=== PATIENT | female | born 1950 | race Caucasian/White ===

== ENCOUNTER 2023-12-15 09:13 | Inpatient (IN) | payer MEDICARE, MEDICAID ==
[~2023-12-15] VITALS: Ht 154.9 cm; Wt 84.8 kg
[~2023-12-15 09:13] MED LIST: FLUO40CA10 PO; FLUT16SP2 BOTHNARES; LEVO200T8 PO; LOVA20TA2 PO
[2023-12-15 10:33] LABS: BASOPHILS % (AUTO) 0.4 % (0-1); EOSINOPHILS # (AUTO) 0.1 X10'3 (0-0.9); EOSINOPHILS % (AUTO) 1.6 % (0-6); HEMATOCRIT 42.8 % (35.0-45.0); MEAN CORPUSCULAR HEMOGLOBIN 29.5 PG (27.0-31.0); MEAN CORPUSCULAR HGB CONC 32.8 g/dL (33.0-36.5); MEAN CORPUSCULAR VOLUME 90.1 FL (78-98); MEAN PLATELET VOLUME 7.8 FL (7.4-10.4); MONOCYTES # (AUTO) 0.7 X10'3 (0-0.9); MONOCYTES % (AUTO) 8.2 % (2-12); NEUTROPHILS # (AUTO) 5.2 X10'3 (1.8-7.7); NEUTROPHILS % (AUTO) 64.8 % (42-75); PLATELET COUNT 230 X10'3 (140-440); RED BLOOD COUNT 4.75 X10'6 (4.20-5.60); RED CELL DISTRIBUTION WIDTH 14.6 % (11.5-14.5); WHITE BLOOD COUNT 8.1 X10'3 (4.5-11.0)
[2023-12-15 10:39] LABS: APTT 29 SECONDS (22-32); PROTHROMBIN TIME 10.6 SECONDS (9.0-12.0)
[2023-12-15 10:42] LABS: ALANINE AMINOTRANSFERASE 23 U/L (12-78); ALBUMIN 3.7 G/DL (3.4-5.0); ALBUMIN/GLOBULIN RATIO 0.9 (1.1-1.5); ALKALINE PHOSPHATASE 98 IU/L (46-116); ANION GAP 5 (8-16); ASPARTATE AMINO TRANSFERASE 16 U/L (10-37); BILIRUBIN,TOTAL 0.4 MG/DL (0.1-1.0); BLOOD UREA NITROGEN 10 MG/DL (7-18); CALCIUM 9.7 MG/DL (8.5-10.1); CHLORIDE 101 MMOL/L (99-107); CREATININE 0.83 MG/DL (0.40-0.90); GLUCOSE 97 MG/DL (70-104); POTASSIUM 4.5 MMOL/L (3.5-5.1); SODIUM 138 MMOL/L (135-145); TOTAL CARBON DIOXIDE 32.2 MMOL/L (24-32); TOTAL PROTEIN 7.7 G/DL (6.4-8.2); eCRCL 44 ML/MIN; eGFR 67 ML/MIN
[2023-12-15 11:44] LABS: BILIRUBIN,URINE NEGATIVE (Neg); CLARITY,URINE SLIGHTLY CLOUDY (Clear); COLOR,URINE YELLOW (Yellow); GLUCOSE, URINE NEGATIVE (Neg); KETONES,URINE NEGATIVE (Neg); LEUKOCYTE ESTERASE ,URINE MODERATE (Neg); NITRITES, URINE NEGATIVE (Neg); OCCULT BLOOD,URINE NEGATIVE (Neg); PROTEIN,URINE NEGATIVE (Neg); UROBILINOGEN,URINE 0.2 E.U/dL (0.2-1.0)
[2023-12-15 11:45] LABS: UA COLLECTION TYPE CLN CATCH MIDSTREAM
[2023-12-15 11:50] LABS: SQUAMOUS EPITHELIAL CELL,UR MANY /LPF (FEW)
[2023-12-15 11:51] LABS: WBC,URINE 30-50 /HPF (0-4)
[2023-12-15 11:53] LABS: BACTERIA,URINE 3+ /HPF (Neg); RBC,URINE NONE SEEN /HPF (0-2); TRANSITIONAL EPI CELLS,URINE FEW /HPF
[2023-12-15] MEDS ORDERED: CefTRIAXone 2gm/D5W 50ml BAG 50 ML IV ONE (12:10)
[2023-12-15] MEDS ORDERED: acetaminophen 325mg tablet PO PRN ×2 (13:15)
[2023-12-15] MEDS ORDERED: magnesium Cl slow-release 64mg tablet PO PRN (13:15)
[2023-12-15] MEDS ORDERED: normal saline 1000ml 1,000 ML IV SCH (13:15)
[2023-12-15] MEDS ORDERED: potassium Cl 40MEQ/1/2NS 520ml 520 ML IV PRN (13:15)
[2023-12-15] MEDS ORDERED: magnesium 2GM in 50ml NS 50 ML IV PRN (13:15)
[2023-12-15] MEDS ORDERED: mag hydrox/Alum hydrox/simeth 30ml oral suspension PO PRN (13:15)
[2023-12-15] MEDS ORDERED: magnesium 4gm in 100ml NS 100 ML IV PRN (13:15)
[2023-12-15] MEDS ORDERED: potassium Cl 20 mEq SR tablet PO PRN ×2 (13:15)
[2023-12-15] MEDS ORDERED: ondansetron/PF 4mg/2ml inj IV PRN (13:15)
[2023-12-15] MEDS ORDERED: PANT-47 PO (19:08)
[2023-12-15] MEDS ORDERED: MEMA10TA56 PO (19:08)
[2023-12-15] MEDS ORDERED: SOTA80TA73 PO (19:08)
[2023-12-15] MEDS ORDERED: APIX5TAB3 PO (19:08)
[2023-12-15] MEDS: K and/or MAG REPLACEMENT MC SCH (20:00)
[2023-12-15 22:46] VITALS: BP 145/73; PULSE 62; RESP 15; TEMP 97.7; O2SAT 95
[2023-12-15 23:04] VITALS: RESP 15; O2SAT 95
[2023-12-16 06:00] VITALS: BP 117/53; PULSE 61; RESP 16; TEMP 97.9; O2SAT 93
[2023-12-16 07:00] LABS: BASOPHILS # (AUTO) 0.1 X10'3 (0-0.2); BASOPHILS % (AUTO) 1.1 % (0-1); EOSINOPHILS # (AUTO) 0.2 X10'3 (0-0.9); EOSINOPHILS % (AUTO) 2.3 % (0-6); HEMATOCRIT 38.1 % (35.0-45.0); HEMOGLOBIN 12.6 g/dl (12.0-16.0); LYMPHOCYTES # (AUTO) 1.5 X10'3 (1.1-4.8); MEAN CORPUSCULAR HEMOGLOBIN 29.9 PG (27.0-31.0); MEAN CORPUSCULAR HGB CONC 33.2 g/dL (33.0-36.5); MEAN CORPUSCULAR VOLUME 90.1 FL (78-98); MEAN PLATELET VOLUME 7.9 FL (7.4-10.4); MONOCYTES # (AUTO) 0.4 X10'3 (0-0.9); MONOCYTES % (AUTO) 5.9 % (2-12); NEUTROPHILS # (AUTO) 4.6 X10'3 (1.8-7.7); NEUTROPHILS % (AUTO) 67.7 % (42-75); PLATELET COUNT 185 X10'3 (140-440); RED BLOOD COUNT 4.23 X10'6 (4.20-5.60); RED CELL DISTRIBUTION WIDTH 14.7 % (11.5-14.5); WHITE BLOOD COUNT 6.7 X10'3 (4.5-11.0)
[2023-12-16 07:03] LABS: ALANINE AMINOTRANSFERASE 18 U/L (12-78); ALBUMIN 3.1 G/DL (3.4-5.0); ALBUMIN/GLOBULIN RATIO 0.9 (1.1-1.5); ALKALINE PHOSPHATASE 84 IU/L (46-116); ANION GAP 9 (8-16); ASPARTATE AMINO TRANSFERASE 19 U/L (10-37); BILIRUBIN,TOTAL 0.5 MG/DL (0.1-1.0); BLOOD UREA NITROGEN 12 MG/DL (7-18); BUN/CREATININE RATIO 15.8 (10.0-20.0); CALCIUM 8.6 MG/DL (8.5-10.1); CHLORIDE 104 MMOL/L (99-107); CHOL/HDL RATIO 2.9 (0.00-4.99); CHOLESTEROL 144 MG/DL (0-200); CREATININE 0.76 MG/DL (0.40-0.90); GLUCOSE 96 MG/DL (70-104); HDL CHOLESTEROL 50 MG/DL (35-60); LDL CHOLESTEROL 70 MG/DL (50-100); MAGNESIUM 1.9 MG/DL (1.5-2.4); PHOSPHORUS 3.5 MG/DL (2.3-4.5); POTASSIUM 4.1 MMOL/L (3.5-5.1); SODIUM 138 MMOL/L (135-145); TOTAL CARBON DIOXIDE 25.3 MMOL/L (24-32); TOTAL PROTEIN 6.5 G/DL (6.4-8.2); TRIGLYCERIDES 66 MG/DL (20-135); eCRCL 48 ML/MIN; eGFR 74 ML/MIN
[2023-12-16] MEDS: K and/or MAG REPLACEMENT MC SCH (07:16)
[2023-12-16] MEDS ORDERED: CefTRIAXone/D5W-Rocephin 1gm 50 ML IV SCH ×2 (08:00→13:25)
[2023-12-16] MEDS: atorvastatin 10mg tablet PO SCH ×2 (09:55→10:07)
[2023-12-16] MEDS ORDERED: apixaban 5mg tablet PO SCH (09:55)
[2023-12-16] MEDS ORDERED: fluticasone nasal spray 16GM bottle NS SCH (09:56)
[2023-12-16] MEDS ORDERED: levoTHYROXINE 100mcg tablet PO SCH (09:56)
[2023-12-16] MEDS ORDERED: pantoprazole 40mg Tablet.DR PO SCH (09:57)
[2023-12-16 10:30] VITALS: BP 121/64; PULSE 66; RESP 16; TEMP 98; O2SAT 94
[2023-12-16] MEDS ORDERED: sotalol 80mg tablet PO SCH ×2 (11:15→20:00)
[2023-12-16] MEDS ORDERED: sotalol HCl 40mg (1/2 tablet) PO SCH (11:24)
[2023-12-16] MEDS ORDERED: CEFD300C3 PO (13:01)
== END 2023-12-16 14:55 | disposition home health service (06) | DRG 689 ==
LOC: ER 09:13 → ED HOLD 13:21 → EDBEDREQ 21:31 → ORTHO 4S 22:36
PROVIDERS: ADMIT Family Medicine; ATTEND Family Medicine
DX: N39.0 Urinary tract infection, site not specified (principal); G93.41 Metabolic encephalopathy; E78.5 Hyperlipidemia, unspecified; H35.30 Unspecified macular degeneration; F03.A0 Unspecified dementia, mild, without behavioral disturbance, psychotic disturbance, mood disturbance, and anxiety; G47.33 Obstructive sleep apnea (adult) (pediatric); I48.91 Unspecified atrial fibrillation; E06.3 Autoimmune thyroiditis; E04.2 Nontoxic multinodular goiter; Z95.0 Presence of cardiac pacemaker; Z88.5 Allergy status to narcotic agent; Z88.6 Allergy status to analgesic agent; Z79.899 Other long term (current) drug therapy; Z87.891 Personal history of nicotine dependence
CPT/HCPCS: 36415; 70450; 71045; 80053; 80061; 81001; 82948; 83036; 83605; 83735; 84100; 84132; 85025; 85610; 85730; 87040; 93005; 99285; G0378; J0696; J7030

== ENCOUNTER 2024-07-14 20:38 | Emergency (ER) | payer MEDICARE, MEDICAID ==
[~2024-07-14] VITALS: Ht 157.5 cm; Wt 90.9 kg
[~2024-07-14 20:38] MED LIST changes: +APIX5TAB3 PO; +MEMA10TA22 PO; +PANT-47 PO; +SOTA80TA73 PO
[2024-07-14 20:41] VITALS: TEMP 98.3
[2024-07-14] MEDS ORDERED: AMOX500C2 PO (21:27)
[2024-07-14] MEDS: amoxicillin 250mg capsule PO ONE (22:01)
[2024-07-14] MEDS: ondansetron 4mg rapidly disintigrating tab PO ONE (22:01)
[2024-07-14] MEDS: acetaminophen 325mg tablet PO ONE (22:01)
[2024-07-14 22:09] VITALS: BP 141/56; PULSE 63; RESP 17; O2SAT 95
== END 2024-07-14 22:12 | disposition home or self-care (01) ==
LOC: ER 20:39
DX: K04.7 Periapical abscess without sinus (principal); Z88.8 Allergy status to other drugs, medicaments and biological substances; Z79.899 Other long term (current) drug therapy; Z79.52 Long term (current) use of systemic steroids; Z98.890 Other specified postprocedural states
CPT/HCPCS: 10060; 41800; 99284

== ENCOUNTER 2025-10-01 08:51 | Emergency (ER) | payer MEDICARE, MEDICAID ==
[~2025-10-01] VITALS: Ht 154.9 cm; Wt 83.0 kg
[~2025-10-01 08:51] MED LIST changes: +ONDA-245 PO
[2025-10-01 08:53] VITALS: TEMP 97
--- NOTE | 2025-10-01 10:09 | Physician Documentation ---
History of Present Illness ~ Chief Complaint: Leg Pain Stated Complaint: LEG PAIN Time Seen by MD: 09:12 OK to notify your PCP?: Yes Primary Medical Doctor: Dr. Velasquez - [facility] Source: patient, family (The daughter provides some of the history of present illness given the patient's history of dementia) Mode of Arrival: POV Exam Limitations: no limitations HPI This is a 75-year-old female brought in via private auto with the daughter. The patient states that is throughout the night she was having leg cramps and muscle spasm with the bilateral lower extremities right greater than left. She states recently she has been having cramps in the bilateral upper extremities that has well. The patient has a history of pacemaker in his on Eliquis. She will follow up with Dr. Sinha and had an echocardiogram one month ago which was normal. The patient has not no history of CHF. She has not no recent prolonged immobilizations, surgeries or travel. She says right now her legs feel heavy. She denies visual disturbances or facial droop. She denies unilateral weakness or pain. The daughter states she is acting her normal self. The patient is complaining of back pain which has been ongoing for some time. Tetanus witin 5 years: No Medication Reconciliation Allergies: Coded Allergies: codeine (Verified Allergy, Unknown, HEADACHE/VOMITING, 10/01/25) acetaminophen (Verified Adverse Reaction, Intermediate, CONFUSION, 10/01/25) oxycodone (Verified Adverse Reaction, Intermediate, CONFUSION, 10/01/25) Scheduled Apixaban (Eliquis), 5 MG PO BID, (Reported) Fluoxetine HCl (Prozac), 1 CAP PO DAILY, (Reported) Fluticasone Propionate (Flonase), 2 SPRAYS BOTHNARES DAILY, (Reported) Levothyroxine Sodium (Levothyroxine Sodium), 1 TAB PO DAILY, (Reported) Lovastatin* (Mevacor*), 0.5 TAB PO DAILY, (Reported) Memantine HCl (Memantine HCl), 1 TAB PO Q12H, (Reported) Ondansetron 8mg ODT (Ondansetron Odt), 1 TAB PO Q6H Pantoprazole Sodium (PROTONIX tablet), 1 TAB PO DAILY, (Reported) Sotalol Hcl* (Betapace*), 80 MG PO BID, (Reported) Past Medical History Past Medical History: *GI/HEPATOBILIARY*, Diverticulitis, Hernia Past Surgical History: other Lives with: Family Lives In: Home Physical Exam Vital Signs: Temperature: 97.0, Source: Temporal, Heart Rate: 60, Respiratory Rate: 15, BP: 152/51, Pulse Oximetry: 95, Weight: 83.000 Pulse Oximetry Reflects: adequate oxygenation General Appearance: alert, WD/WN, no apparent distress Head: normal inspection EENT: PERRL/EOMI Neck: non-tender, full range of motion, normal inspection Respiratory: no respiratory distress Chest: no accessory muscle use Cardiovascular: normal peripheral pulses, regular rate, rhythm, no edema (No obvious edema of the bilateral lower extremities. No unilateral edema when compared with the legs with the each other. No pitting edema to palpation of the area. Negative Homans sign bilaterally. No palpable calf tenderness or cords bilaterally. The discoloration of the bilateral lower extremities.), no gallop, no JVD, no murmur Skin: normal color, warm/dry Progress Results/Orders Results/Orders Orders - NUVIA BERNAL Observation Status Start (10/01/25 09:59) Hs Troponin I W Calculations (10/01/25 11:59) Hs Troponin I W Calculations (10/01/25 12:59) Chest,Single View (10/01/25 09:59) Electrocardiogram (10/01/25 09:59) Completed Orders - NUVIA BERNAL Cbc/Diff (10/01/25 09:59) TSH (10/01/25 09:59) Free T4 (10/01/25 09:59) MG (10/01/25 09:59) BMP (10/01/25 09:59) Hs Troponin I W Calculations (10/01/25 09:59) PBNP (10/01/25 09:59) CK (10/01/25 09:59) Chest,Single View (10/01/25 09:59) D-Dimer (10/01/25 09:59) Vital Signs 10/01/25 08:53 Temp 97.0 Pulse 60 Resp 15 B/P (MAP) 152/51 Pulse Ox 95 Laboratory Tests Test 10/01/25 10:20 White Blood Count 5.7 Red Blood Count 4.31 Hemoglobin 12.8 Hematocrit 38.3 Mean Corpuscular Volume 88.9 Mean Corpuscular Hemoglobin 29.8 Mean Corpuscular Hemoglobin Concent 33.5 Red Cell Distribution Width 14.3 Platelet Count 203 Mean Platelet Volume 8.1 Neutrophils (%) (Auto) 56.8 Lymphocytes (%) (Auto) 32.0 Monocytes (%) (Auto) 8.1 Eosinophils (%) (Auto) 2.7 Basophils (%) (Auto) 0.4 Neutrophils # (Auto) 3.2 Lymphocytes # (Auto) 1.8 Monocytes # (Auto) 0.5 Eosinophils # (Auto) 0.2 Basophils # (Auto) 0.0 CBC Comment D-Dimer 0.25 D-Dimer Comment Sodium Level 140 Potassium Level 4.1 Chloride Level 104 Carbon Dioxide Level 33.3 H Anion Gap 3 L Blood Urea Nitrogen 10 Creatinine 0.73 Estimated GFR/1.73 m2 77 BUN/Creatinine Ratio 13.7 Glucose Level 104 Calcium Level 8.7 Magnesium Level 2.1 Total Creatine Kinase 73 Troponin I High Sensitivity 7 Pro-B-Type Natriuretic Peptide 340 Albumin 3.2 L Thyroid Stimulating Hormone (TSH) 0.33 L Free Thyroxine 1.29 Chemistry Comments Medical Decision Making Additional information obtaine: family Findings The patient has workup was all within normal limits. She recently had an echocardiogram which was normal and BNP was only slightly elevated. This is with a new indicate CHF causing the mild edema of the bilateral lower extremities. D-dimer was negative. No electrolyte now abnormalities. No signs of infection. I believe the pain is radicular pain coming from the patient has low back as she does have back pain with spasms of the times pain that radiates down the legs. She has not no signs of cauda equina syndrome or focal neuro deficits. I discussed options at length patient with the patient's daughter. They are okay with the being discharged home for outpatient follow up. General Diff Dx:Considerations: Include: Abrasion, Contusion, Fracture, Hematoma, Laceration, Malunion, Neurovascular injury, Open fracture, Sprain, Ulcer, Other Knee Diff Dx:Considerations: Include: Abrasion, Arthritis, Contusion, DJD, Fracture-femur, Fracture-fibula, Fracture-patella, Fracture-tibia, Gout, Hematoma, Laceration, Meniscus injury, Neurovascular injury, Open fracture, Rheumatoid arthritis, Septic, Sprain, Sprain-MCL, Sprain-LCL, Sprain-ACL, Sprain-PCL, Other Ankle Diff Dx:Considerations: Include: Abrasion, Arthritis, Contusion, DJD, Fracture-metatarsal, Fracture-fibula, Fracture-tarsal, Fracture-tibia, Gout, Hematoma, Laceration, Malunion, Neurovascular injury, Nonunion, Open fracture, Osteomyelitis, Rheumatoid arthritis, Sprain, Septic, Ulcer, Other Foot Diff Dx:Considerations: Include: Abrasion, Arthritis, Cellulitis, Contusion, Dislocation, DJD, Fracture-metatarsal, Fracture-phalynx, Fracture- tarsal, Gout, Hematoma, Ingrown toenail, Laceration, Malunion, Neurovascular injury, Open fracture, Paronychia, Puncture, Rheumatoid, Sprain, Septic, S ubungual hematoma, Ulcer, Other Toe Diff Dx:Considerations: Include: Abrasion, Cellulitis, Contusion, Disl ocation, Felon, Fracture, Hematoma, Laceration, Neurovascular injury, Open fracture, Paronychia, Subungual hematoma, Other Additional Comment Different diagnosis: Lumbosacral radiculopathy. Disc herniation of the low back. Fasciculations of the bilateral lower extremities. Muscle cramps. Electrolyte imbalance. Low clinical suspicion for DVT given the patient's clots. Low clinical suspicion for CHF giving the patient has negative echocardiogram one month ago. Departure Disposition: HOME / SELF CARE / HOMELESS Impression: Primary Impression: Leg cramps Additional Impression: Low back pain Condition: Stable Discharge Instructions: Muscle Cramps and Spasms Additional Instructions: Take ibuprofen for any discomfort. Keep herself well hydrated with drinks that contain electrolytes. Follow up with the primary care physician for recheck in the next one or two days. Return for any worsening or concerning symptoms Referrals: NO PRIMARY CARE PROVIDER (PCP) Signature Scribe Signature: No scribe Attestation: The note accurately reflects work and decisions made by me.Nuvia SANTIAGO 10/01/25 11:28 NUVIA BERNAL Oct 01, 2025 10:09
[2025-10-01 10:44] LABS: MEAN PLATELET VOLUME 8.1 FL (7.4-10.4); RED CELL DISTRIBUTION WIDTH 14.3 % (11.5-14.5)
--- NOTE | 2025-10-01 10:51 | RADIOLOGY REPORT ---
CHEST RADIOGRAPH Indication: Peripheral edema Technique: Single frontal view of the chest was obtained COMPARISON: DI CHEST,SINGLE VIEW on DOS: 11/30/24, DI CHEST,SINGLE VIEW on DOS: 12/15/23 FINDINGS: Lines and Tubes: Left chest pacemaker Lungs: Congestion Pleura: No effusion. No pneumothorax. Cardiomediastinal contours: Unremarkable Bones: Unremarkable IMPRESSION: Increased interstital prominence. This may represent pulmonary vascular congestion and/or viral pneumonia. Clinical correlation advised.
[2025-10-01 11:02] LABS: CREATININE 0.73 MG/DL (0.40-0.90); PRO BRAIN NATRIURETIC PEPTIDE 340 PG/ML (0-450); TOTAL CARBON DIOXIDE 33.3 MMOL/L (24-32); eCRCL 49 ML/MIN; eGFR 77 ML/MIN
[2025-10-01 11:49] VITALS: BP 143/68; PULSE 60; RESP 20; O2SAT 96
--- NOTE | 2025-10-01 15:56 | ELECTROCARDIOGRAPH REPORT ---
[facility] Test Date: 2025-10-01 Test Time: 10:09:08 Pat Name: KRISTI JONES Department: [facility] Patient ID: [facility]-[id number] Room: Gender: F Baker [place]: : 1950 Requested By: NUVIA BERNAL Order Number: [id number] Reading MD: Dr. BERENICE Fajardo Measurements Intervals [place] Rate: 60 P: 0 SD: 174 QRS: -13 QRSD: 94 T: -50 QT: 496 QTc: 496 Interpretive Statements Atrial-paced rhythm Low voltage, precordial leads Borderline T abnormalities, diffuse leads Borderline prolonged QT interval Electronically Signed On 10-03-2025 11:46:[address] BERENICE Fajardo Please click the below link to view image of tracing.
== END 2025-10-01 11:51 | disposition home or self-care (01) ==
LOC: ER 08:51
DX: R25.2 Cramp and spasm (principal); M54.50 Low back pain, unspecified; Z95.0 Presence of cardiac pacemaker; Z88.5 Allergy status to narcotic agent; Z79.899 Other long term (current) drug therapy; Z79.01 Long term (current) use of anticoagulants; Z20.822 Contact with and (suspected) exposure to COVID-19
CPT/HCPCS: 36415; 71045; 80048; 82550; 83735; 83880; 84439; 84443; 84484; 85025; 85379; 93005; 99285